=== PATIENT | female | born 1995 | race Caucasian/White ===

== ENCOUNTER 2019-05-30 15:52 | Emergency (ER) | payer OTHER, SELFPAY ==
[2019-05-30 16:18] VITALS: BP 118/65; PULSE 81; RESP 18; TEMP 36.6; O2SAT 99; BMI 28.1
--- NOTE | 2019-05-30 16:41 | ED_ITS ---
HPI - Female Genitourinary <MONICA Bush - Last Filed: 05/30/19 17:59> General Chief complaint: Urogenital-Female Stated complaint: cramps and bleeding, lead painter problem Time Seen by Provider: 05/30/19 15:56 Source: patient Mode of arrival: Family Vehicle Limitations: no limitations History of Present Illness HPI Narrative: This is a 23-year-old female, nonsmoker, who presents to ED with spouse and young child with chief complain of vaginal bleeding and low abdominal cramping discomfort and reports unable to feel IUD strings. Patient reports she had an copper IUD in placed in December at [facility] and she had not had any vaginal bleeding until 1 week ago. Patient started with light vaginal bleeding which progressively became heavier. She states now she has light to mo derate bleeding. She was lightheaded once yesterday which resolved. Review of Systems <MONICA Bush - Last Filed: 05/30/19 17:59> Review of Systems Narrative: General: Denies fever, chills, fatigue, malaise, sweats. HEENT: Denies sinus pain, ear pain, sore throat, difficulty swallowing, dizziness. Respiratory: Denies dyspnea, cough, wheezing, hemoptysis, sputum. Cardiovascular: Denies chest pain, palpitations, orthopnea, edema. Gastrointestinal: Denies nausea, vomiting, (+) low abdominal cramping, diarrhea, constipation, melena. : Denies dysuria, frequency, incontinence, hematuria, urinary retention, (+) vaginal bleeding and was unable to feel IUD strings at home. Musculoskeletal: Denies weakness, joint pain or bony pain. Skin: Denies rash, skin lesions, or other. Neurologic: Denies weakness, headache, numbness, change in speech, confusion, seizures, incoordination. Psychiatric: No concerning psychosocial issues. 12-point review of systems is negative except for those stated above. Patient History <MONICA Bush - Last Filed: 05/30/19 17:59> Medical History No significant past medical history (Acute) Surgical History No pertinent past surgical history (Acute) alcohol intake frequency: 0-2 drinks per day Substance Use Type: does not use Exam <Albert Daniel-MONICA Rivera - Last Filed: 05/30/19 17:59> Narrative Exam Narrative: GEN: Alert, oriented x 3, well appearing and nourished, and in no acute distress. Head: Normal cephalic, atraumatic. No scalp or temporal tenderness, palpable mass or rash. EYES: Pupils are equal, round, and reactive to light and accommodation. Extraocular muscles are intact bilaterally. There is no subconjunctival hemorrhage, exudate and sclera non-icteric. ENT: Bilateral auditory canals and tympanic membranes clear. Hearing grossly intact. Nose without bleeding, purulent discharge or deviation. Facial sinuses nontender to palpate. Mucous membrane moist, no mucosal lesion. Throat without erythema, tonsillar hypertrophy or exudate. Uvula in midline, airway patent. Neck: Trachea in midline. No JVD, non-tender without lymphadenopathy. No masses or thyroid megaly. Supple, non-tender and no meningeal signs. CARDIAC: Normal regular rate and rhythm without murmurs, gallops, or rubs. No chest wall tenderness. No peripheral edema, cyanosis or pallor. Capillary refill is less than 2 seconds. RESPIRATORY: Lungs are clear to auscultate bilaterally. No cough, wheezes, rales, or rhonchi. No stridor, respiratory distress, increase work of breathing, or accessary muscle used. ABD: Abdomen soft, tender to palpate in lower abdomen and non-distended. No gu arding or rebound tenderness to palpate. Bowel sounds are normal in all 4 quadrants. There is no palpable masses or organomegaly. EXT: Full painless ROM of all extremities with no loss of sensation, strength, effusion or edema. SKIN: Warm, dry, normal color for patient. No erythema, lesions or rash over visible areas. BACK: Nontender without deformity or crepitance. No flank tenderness. NEUROLOGICAL: Alert and oriented to place, time and person. Sensation and motor function intact bilaterally. No facial droops, dysphasia. PSYCHIATRIC: Good judgement and reason, without hallucinations, abnormal affect or abnormal behaviors during the examination. Patient is not suicidal. Initial Vital Signs Initial Vital Signs: Vital Signs Temperature 97.9 F 05/30/19 16:18 Pulse Rate 81 02/28/20 16:18 Respiratory Rate 18 05/30/19 16:18 Blood Pressure 118/65 05/30/19 16:18 Pulse Oximetry 99 05/30/19 16:18 External Female Exam: external appearance normal Speculum Exam - Vagina: normal appearance of the vagina, vaginal bleeding (Small amount), No tissue present in vagina, no masses, no swelling and nontender Speculum Exam - Cervix: closed cervix and other (To dark strings visualized after repositioning speculum several times) OB/External & Speculum: no tissue noted in vagina and vaginal bleeding (Small amount) <Daniel Grover DO - Last Filed: 05/30/19 18:18> Initial Vital Signs Initial Vital Signs: Vital Signs Temperature 97.9 F 05/30/19 16:18 Pulse Rate 81 05/30/19 16:18 Respiratory Rate 18 05/30/19 16:18 Blood Pressure 118/65 05/30/19 16:18 Pulse Oximetry 99 05/30/19 16:18 Scores <MONICA Bush - Last Filed: 05/30/19 17:59> GCS [place] coma scale eye opening: Spontaneous [place] coma scale verbal response: Orientated [place] coma scale motor response: Obey commands [place] coma scale total score: 15 Course <MONICA Bush - Last Filed: 05/30/19 17:59> Orders Ordered: ED Orders 05/30/19 16:39 US pelvic complete Stat Vital Signs Vital signs: Vital Signs - 8 hr 05/30/19 16:18 05/30/19 18:09 Temperature 97.9 F Pulse Rate 81 70 Respiratory Rate 18 18 Blood Pressure 118/65 Blood Pressure [Left Arm] 110/72 Pulse Oximetry 99 99 <Daniel Grover DO - Last Filed: 05/30/19 18:18> Orders Ordered: ED Orders 05/30/19 16:39 US pelvic complete Stat Vital Signs Vital signs: Vital Signs - 8 hr 05/30/19 16:18 05/30/19 18:09 Temperature 97.9 F Pulse Rate 81 70 Respiratory Rate 18 18 Blood Pressure 118/65 Blood Pressure [Left Arm] 110/72 Pulse Oximetry 99 99 MDM - Female Genitourinary <MONICA Bush - Last Filed: 05/30/19 17:59> Differential Diagnosis Differential diagnosis: Likely other (IUD placement verification, IUD migration, normal menses) Medical Records Attestation: I reviewed the patient's medical records. Lab Data Labs: Point of Care Testing Test Results Negative Urine Dip Bedside Urine Glucose Negative Bedside Urine Bilirubin - Negative Bedside Urine Ketone - Negative Urine Specific [place] 1.020 Bedside Urine Occult Blood +++ Bedside Urine pH 6.5 Bedside Urine Protein - Negative Bedside Urine Urobilinogen - Negative Bedside Urine Nitrite - Negative Bedside Urine Leukocytes - Negative Esterase Imaging Data US-Pelvic: Radiologist's Impression: [address] [address] Ultrasound Report Signed Patient: Martha RileynMR#: [id number] : 1995Acct:[id number] Age/Sex: te of Service: 05/30/19 Loc: ED Accession Number: [id number] Procedure: US pelvic complete Ordering Provider: Albert Richtre PROCEDURE: US PELVIC COMPLETE INDICATIONS: IUD PLACEMENT VERIFICATION TECHNIQUE: Real-time scanning was performed of the pelvic organs, with image documentation. Additional endovaginal scanning was necessary due to incomplete visualization of the adnexal and endometrial structures by transabdominal scanning. COMPARISON: None. FINDINGS: Transabdominal scanning: Limited scanning through the kidneys shows no hydronephrosis. No pathologic free abdominal or pelvic fluid. Physiologic free fluid is seen within the pelvis. Endovaginal scanning: Uterus: Uterus is normal in size at 8.4 x 3.4 x 4.9 cm. The endometrium measures 5 mm in combined thickness. No focal myometrial lesions are identified. The intrauterine contraceptive device appears to be appropriately positioned within the endometrial cavity. The cervix is unremarkable. Ovaries: The right ovary measures 4.0 x 1.8 x 1.6 cm. The left ovary measures 2.5 x 1.1 0.7 cm. Both ovaries are normal in size without a cystic or solid abnormality. Follicles are present bilaterally. IMPRESSION: The intrauterine contraceptive device appears to be appropriately positioned within the uterine cavity. Dictated by: Reno Cummins M.D. on 05/30/2019 at 16:23 Approved by: Reno Cummins M.D. on 05/30/2019 at 16:30 [facility] Narrative Medical decision making narrative: This is a 23-year-old female who presents to ED with abdominal cramping and 1st vaginal bleeding who has IUD in placed since December with concerns of not being able to feel IUD strings. During pelvic exam IUD string was visualized. Small amount of blood in vaginal canal noted. Ultrasound test indicates IUD placed at appropriate position and within the uterine cavity. Patient advised to take [id number] ibuprofen as needed for discomfort informing this may be 1st menses after she had given and IUD insertion. Urine hCG test was negative. Urine nitrite and leukocytes esterase were negative. Return precautions were discussed with the patient and patient verbalized understanding and in agreement with the treatment plan. <Daniel Grover DO - Last Filed: 05/30/19 18:18> Lab Data Labs: Point of Care Testing Test Results Negative Urine Dip Bedside Urine Glucose Negative Bedside Urine Bilirubin - Negative Bedside Urine Ketone - Negative Urine Specific [place] 1.020 Bedside Urine Occult Blood +++ Bedside Urine pH 6.5 Bedside Urine Protein - Negative Bedside Urine Urobilinogen - Negative Bedside Urine Nitrite - Negative Bedside Urine Leukocytes - Negative Esterase Discharge Plan Departure Patient Disposition: Home Clinical Impression: IUD check up Discharge Date/Time: 05/30/19 18:10 Instructions: DI for Vaginal Bleeding Activity Restrictions/Additional Instructions: You have been diagnosed with [encounter for IUD placement verification. IUD is in placed at the appropriate location. During pelvic exam 2 strings were visualized. Vaginal bleeding is likely your normal menstruation. Urine test shows no infection and you are not .]. What to do: *Take your medications as directed. You can take ibuprofen 400 mg 3 to 4 times a day as needed with food for discomfort/abdominal cramping. You can discuss IUD removal with her primary care physician. *Follow up with your primary care provider in 2-3 days, call for an appointment. Let them know you were seen in the ED and that we asked you to be seen in follow up. *Return to ED if you have any new, worsening, or concerning symptoms, such as [chest pain, breathing difficulty, lightheadedness, unable to tolerate fluids, severe vaginal bleeding need to change pads every hour for 3 hours or any acute concerns]. Referrals: [facility] [Outside] <DO Bj Alcocer Last Filed: 05/30/19 18:18> Sign Out Provider Sign Out Attestation: Dr Grover Co-Sign Statement: I was available for consultation during this patient's emergency department visit. This chart is signed by myself for administrative purposes only. I did not have direct contact with this patient during this visit. They were seen independently by the APC.
[2019-05-30 18:09] VITALS: BP 110/72; PULSE 70; RESP 18; O2SAT 99
== END 2019-05-30 18:10 | disposition home or self-care (01) ==
PROVIDERS: Emergency Provider Nurse Practitioner Family
DX: Z30.431 Encounter for routine checking of intrauterine contraceptive device (principal); N93.9 Abnormal uterine and vaginal bleeding, unspecified
CPT/HCPCS: 76830; 76856; 81003; 81025; 99283

== ENCOUNTER 2019-08-10 13:33 | Emergency (ER) | payer OTHER, SELFPAY ==
[2019-08-10 13:46] VITALS: BP 139/86; PULSE 91; RESP 16; TEMP 36.9; O2SAT 99; BMI 28.1
[2019-08-10 14:14] LABS: Amorphous Sediment Urine 1+; Bacteria Urine Few (2-10); Mucus Urine 2+ (Negative); RBC Urine 10-30/HPF (0-5/HPF); Sperm Urine PRESENT; Squamous Epithelial Cell Urine 1-5 /HPF (0-5/HPF); Transitional Epi Cells Urine 1-5/HPF (0-5/HPF); WBC Urine 0-1/HPF (0-5/HPF)
--- NOTE | 2019-08-10 14:14 | DI.CT.S_ITS ---
PROCEDURE: CT ABDOMEN PELVIS WO CON INDICATIONS: right flank and lower abdominal pain r/o stone/ appendicitis TECHNIQUE: Noncontrast 5 mm thick sections acquired from the diaphragms to the symphysis. 5 mm coronal and sagittal reformats were then performed. For radiation dose reduction, the following was used: automated exposure control, adjustment of mA and/or kV according to patient size. COMPARISON: [facility], , PELVIC COMPLETE, 05/30/2019, 17:04. FINDINGS: Image quality: Excellent. ABDOMEN: Lung bases: Lung bases are clear. Heart size is normal. Solid organs: Liver is normal in size. Gallbladder is. Pancreas is normal in contours. Spleen is normal in size. No adrenal nodules. Kidneys are normal in size. There is mild to moderate right hydronephrosis and hydroureter. 3 mm calcification is noted at the right ureterovesicular junction. Peritoneum and bowel: Unenhanced bowel loops demonstrate normal wall thickness and caliber. No free fluid or air. Appendix is within normal limits. Nodes and vessels: No retroperitoneal or mesenteric adenopathy by size criteria. Aorta and inferior vena cava are normal in caliber. Miscellaneous: No ventral hernias. PELVIS: Genitourinary: Bladder wall thickness is normal. Intrauterine device is present. Miscellaneous: No inguinal hernias or adenopathy. Bones: No suspicious bony lesions. No vertebral body compression fractures. IMPRESSION: 1. Mild/moderate right renal and ureteral structures secondary to 3 mm ureterovesicular calculus. Dictated by: Eden Wooten M.D. on 08/10/2019 at 14:43 Approved by: Eden Wooten M.D. on 08/10/2019 at 14:45
[2019-08-10 14:15] LABS: Culture Indicated Urine Cult Not Indicated
--- NOTE | 2019-08-10 14:18 | ED.FEMALEGU ---
HPI - Female Genitourinary General Chief complaint: Urogenital-Female Stated complaint: right sided abd and back pain today Time Seen by Provider: 08/10/19 13:44 Source: patient Mode of arrival: Ambulatory History of Present Illness HPI Narrative: CC: right flank pain radiating to the lower abdomen. HPI: The patient is day 23-year-old female who states that her last menstrual period was the end of July. She states that prior to coming into the emergency department she developed right posterior lower flank and back pain that radiated anterior to her suprapubic lower abdomen. She describes the pain as a dull throbbing discomfort that is intermittently sharp and shooting to her abdomen. The pain intensity is 6/10. She denies any fall or injury. She has not had this pain and discomfort before. She denies having her appendix removed as well as any kidney stones, kidney infections. She has had no dysuria urinary frequency. She has been nauseous but has not vomited. She has had no diarrhea no increased urgency or frequency. She has had normal bowel movements without melena or hematochezia. She denies any exposure to cold they had. She has had no recent fever chills sweats shortness of breath cough or chest pain. She does not smoke cigarettes. She used to smoke for approximately 1 month when she was younger. She periodically drinks alcohol but does not use any drugs. Related Data Previous Rx's Medication Instructions Recorded hydrocodone-acetaminophen [[place]] 1 tab PO Q4-6H PRN #12 tab 08/10/19 ketorolac 10 mg PO Q6H PRN 5 Days #20 tab 08/10/19 tamsulosin [Flomax] 0.4 mg PO DAILY #5 cap 08/10/19 Allergies Allergy/AdvReac Type Severity Reaction Status Date / Time No Known Drug Allergies Allergy Verified 08/10/19 13:46 Review of Systems Review of Systems Narrative: Her review of systems were negative except for those mentioned in history of present illness. Patient History Medical History No significant past medical history (Acute) Surgical History No pertinent past surgical history (Acute) alcohol intake frequency: 0-2 drinks per day Substance Use Type: does not use Exam Narrative Exam Narrative: PHYSICAL EXAM: CONSTITUTIONAL: Awake, Alert, Oriented, Coherent, Cooperative in NAD. Does not appear toxic or ill. HEAD: AT/NC EENT: PERRL, FROM of eyes, no discharge, no nystagmus MOUTH: The patient is wearing a mask. NECK: Supple, no obvious JVD, Trachea is midline without stridor, no palpable LN. SPINE: Palpationof the cervical, Thoracic, Lumbar or Sacral spine reveals no gross deformity or tenderness. No CVA tenderness. The patient is not tender to palpation over her SI joints or sciatic notches bilaterally. THORAX: No deformity, retractions, chest wall tenderness. LUNGS: Clear, symmetrical breath sounds without respiratory distress. HEART: Normal heart tones, regular rhythm and rate without murmur. ABDOMEN: The abdomen is soft with minimal tenderness in the suprapubic and left lower quadrant without guarding rebound or rigidity noted. There is no palpable spleen. EXTREMITIES: No edema, deformity, tenderness or cyanosis. SKIN: No rash, bruising, petechiae or purpura. NEURO: Awake, alert, oriented, conversive, cranial nerves II-XII are symmetrical , moves all 4 extremities and is ambulatory. Initial Vital Signs Initial Vital Signs: Vital Signs Temperature 98.5 F 08/10/19 13:46 Pulse Rate 91 H 08/10/19 13:46 Respiratory Rate 16 08/10/19 13:46 Blood Pressure 139/86 08/10/19 13:46 Pulse Oximetry 99 08/10/19 13:46 Course Course Course Narrative: 1528: The patient's CT scan reveals that she has a right ureter stone at the ureterovesical junction that is 3 mm. She should pass this stone without difficulty. After the Toradol the patient's pain and discomfort is about 3/10 in intensity. The patient will be discharged home on Flomax for the next 5 days. She will be given a prescription for oral Toradol for pain and discomfort and a few [place] tablets as a rescue medication for severe pain and discomfort. For the patient's pain and discomfort she will be administered 2 mg of morphine sulfate and then discharged. Orders Ordered: Discontinued Medications Ketorolac Tromethamine (Toradol) 30 mg IV NOW ONE Stop: 08/10/19 14:15 Last Admin: 08/10/19 14:34 Dose: 30 mg Documented by: EMMY Morphine Sulfate (Morphine) 2 mg IV NOW ONE Stop: 08/10/19 15:36 Last Admin: 08/10/19 15:53 Dose: 2 mg Documented by: EMMY Ondansetron HCl (Zofran) 4 mg IV NOW ONE Stop: 08/10/19 14:18 Last Admin: 08/10/19 14:34 Dose: 4 mg Documented by: EMMY Tamsulosin HCl (Flomax) 0.4 mg PO NOW ONE Stop: 08/10/19 15:25 Last Admin: 08/10/19 15:54 Dose: 0.4 mg Documented by: EMMY Vital Signs Vital signs: Vital Signs - 8 hr 08/10/19 13:46 Temperature 98.5 F Pulse Rate 91 H Respiratory Rate 16 Blood Pressure 139/86 Pulse Oximetry 99 MDM - Female Genitourinary Lab Data Labs: Lab Results 08/10/19 Range/Units 13:42 Urine RBC 10-30/hpf H (0-5/HPF) Urine WBC 0-1/hpf (0-5/HPF) Ur Squamous Epith Cells 1-5 /hpf (0-5/HPF) Ur Transition Epith Cell 1-5/hpf (0-5/HPF) Amorphous Sediment 1+ Urine Bacteria Few (2-10) H (None) Urine Mucus 2+ H (Negative) Urine Sperm Present Ur Culture Indicated? Cult not indicated Point of Care Testing Test Results Negative Urine Dip Bedside Urine Glucose Negative Bedside Urine Bilirubin + 1 Bedside Urine Ketone +/- 5 Urine Specific [place] 1.030 Bedside Urine Occult Blood +++ Bedside Urine pH 6.0 Bedside Urine Protein + 30 Bedside Urine Urobilinogen - Negative Bedside Urine Nitrite - Negative Bedside Urine Leukocytes - Negative Esterase Discharge Plan Departure Patient Disposition: Home Clinical Impression: Acute right flank pain, Lower abdominal pain, Ureteric calculus Hematuria Qualifiers: Hematuria type: other microscopic Qualified Code(s): R31.29 - Other microscopic hematuria Discharge Date/Time: 08/10/19 16:57 Instructions: DI for Kidney Stones Prescriptions: New ketorolac 10 mg tablet 10 mg PO Q6H PRN (Reason: pain) 5 Days Qty: 20 RF: 0 tamsulosin [Flomax] 0.4 mg capsule 0.4 mg PO DAILY Qty: 5 RF: 0 hydrocodone-acetaminophen [[place]] 5-325 mg tablet 1 tab PO Q4-6H PRN (Reason: pain) Qty: 12 RF: 0 Referrals: Kristi Spence MD [Physician] -
[2019-08-10] MEDS: ONDANSETRON 4 MG/2 ML INJ IV (14:34)
[2019-08-10] MEDS: KETOROLAC 60 MG/2 ML VIAL 30 MG IV (14:34)
[2019-08-10] MEDS: MORPHINE 2 MG/ML INJ IV (15:53)
[2019-08-10] MEDS: TAMSULOSIN 0.4 MG CAPSULE PO (15:54)
[2019-08-10 16:00] VITALS: BP 115/72; PULSE 79; RESP 16; O2SAT 98
== END 2019-08-10 16:57 | disposition home or self-care (01) ==
PROVIDERS: Emergency Provider Emergency Medicine
DX: N20.1 Calculus of ureter (principal); R31.29 Other microscopic hematuria
CPT/HCPCS: 74176; 81003; 81015; 81025; 96374; 96375; 99284; J1885; J2270; J2405